=== PATIENT | male | born 1980 | race African-American/Black ===

== ENCOUNTER 2024-03-03 10:51 | Outpatient (CLI) | payer BC, SELFPAY ==
--- NOTE | ~2024-03-03 | US_ITS ---
Renal-Bladder ultrasound Clinical History: Abnormal kidney function studies Technique: Real-time sonographic imaging of the kidneys and urinary bladder was performed. Findings: The right kidney measures 10.8 cm in length and the left kidney measures 10.9 cm. There is no hydronephrosis or renal calculus identified. Renal cortical echogenicity is within normal limits. No renal mass lesion is identified. The urinary bladder is moderately distended at the time of this exam. No intraluminal echoes are iden tified. No abnormal wall thickening is seen. Impression: Unremarkable ultrasound of the kidneys and urinary bladder. Reviewed, dictated and finalized at location M. Impression: Unremarkable ultrasound of the kidneys and urinary bladder.
== END 2024-03-03 10:52 | disposition home or self-care (01) ==
LOC: MICIMG 10:52
PROVIDERS: PCP Student in an Organized Health Care Education/Training Program; Visit Provider Internal Medicine Nephrology
DX: R94.4 Abnormal results of kidney function studies (principal)
CPT/HCPCS: 76775

== ENCOUNTER 2024-09-01 13:52 | Outpatient (CLI) | payer BC, SELFPAY ==
[2024-09-01 14:23] LABS: Hematocrit 40.7 % (42.0-52.0); Hemoglobin 13.4 g/dL (14.0-18.0); Mean Corpuscular HGB Conc 32.9 g/dl (32-36); Mean Corpuscular Hemoglobin 29.8 pg (26-34); Mean Corpuscular Volume 90.4 fl (80-100); Mean Platelet Volume 9.7 fl (7.4-10.4); Platelet Count Result 337 k/mm3 (150-375); Red Cell Distribution Width 15.4 % (11.5-14.5); White Blood Count 7.5 K/mm3 (4.5-10.0)
[2024-09-01 14:40] LABS: Albumin Level 4.5 g/dL (3.5-5.1); Anion Gap 10 mmol/L (4-12); Blood Urea Nitrogen 18 mg/dL (9-20); Calcium 9.1 mg/dL (8.4-10.2); Carbon Dioxide 28 mmol/L (22-30); Chloride 103 mmol/L (98-107); Estimated Glomerular Filt Rate > 60; Glucose 96 mg/dL (65-110); Phosphorus 3.7 mg/dL (2.5-4.5); Potassium 3.9 mmol/L (3.4-5.0); Sodium 141 mmol/L (137-145)
[2024-09-01 15:15] LABS: Creatinine Urine 153.4 mg/dL
[2024-09-01 15:19] LABS: Total Protein Urine Random < 5 mg/dL; Ur Ttl Prot Creatinine Ratio < 0.03 mg/mg (0-0.20)
--- OUTSIDE RECORDS SUMMARY | 2024-09-01 15:29 | XMS_ITS | Referral Summary ---
Author Organization [facility] Address [address] [place] [address] Care Team Providers Care Terrazzo Installer Name Role Phone No, Physician Primary Care Provider [phone] Allergies No known active allergies Medications acetaminophen (TYLENOL) 500 mg tablet Take 1-2 tablets (500-1,000 mg total) by mouth every 6 (six) hours as needed for pain (1 tablet for mild to moderate pain. 2 tablets for severe pain) 30 tablet 02/23/2024 Active oxyCODONE (ROXICODONE) 5 mg immediate release tabletIndicatio ns:Pain Take 1 tablet (5 mg total) by mouth every 6 (six) hours as needed for pain 5 tablet 02/23/2024 Active ibuprofen (ADVIL,MOTRIN) 600 mg tablet Take 1 tablet (600 mg total) by mouth every 6 (six) hours as needed for pain 30 tablet 02/23/2024 Active Active Problems Problem Noted Date Diagnosed Date ABDIEL (obstructive sleep apnea) 03/26/2023 Pure hypercholesterolemia 03/26/2023 Essential hypertension 03/25/2019 Immunizations Immunization Administration Dates Next Due Tdap 02/22/2024 Social History Tobacco Use Types Packs/Day Years Used Date Smoking Tobacco: Never Assessed Alcohol Use Standard Drinks/Week Comments Yes 0 (1 standard drink = 0.6 oz pur e alcohol) Personal Safety Answer Date Recorded Have you ever been in or are you currently in a harmful physical or emotional relationship or is someone making you feel afraid or unsafe? 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 Gender Identity Not on file Sexual Orientation Not on file Last Filed Vital Signs Vital Sign Reading Time Taken Comments Blood Pressure 137/99 02/23/2024 2:05 AM CDT Pulse 75 02/23/2024 2:05 AM CDT Temperature 37.4 C (99.4 F) 02/23/2024 1:02 AM CDT Respiratory Rate 18 02/23/2024 2:05 AM CDT Oxygen Saturation 100% 02/23/2024 2:05 AM CDT Inhaled Oxygen Concentration - - Weight 106.6 kg (235 lb) 02/23/2024 1:25 AM CDT Height 189.2 cm (6' 2.5 ) 02/23/2024 1:25 AM CDT Body Mass Index 29.77 02/23/2024 1:25 AM CDT Plan of Treatment Not on file Insurance FED[employer]AL [address] [address] [employer] Care Teams Terrazzo Installer Relationship Specialty Start Date End Date No, Physician PCP - General 02/19/24
--- OUTSIDE RECORDS SUMMARY | 2024-09-01 15:29 | XMS_ITS | Clinical Summary ---
Author Organization 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 Gender Identity Not on file Sexual Orientation Not on file Obstetrics History Last Filed Vital Signs Vital Sign Reading [...] 02/23/2024 1:25 AM CDT Plan of Treatment Health Maintenance Due Date Last Done Comments Colon Cancer Screening-Colonoscopy 1978 Depression Screening 1978 Hepatitis C Screening 1978 Prostate Cancer Screening-PSA 1978 Hepatitis B Screening 1996 Regular Well Visit/Exam 18-64 1996 Covid-19 Vaccine ( season) 2024 11/01/2020, 09/20/2020 Influenza Vaccine (#1) 2024 DTaP/Tdap/Td Vaccine (8 - Td or Tdap) 02/21/2034 02/22/2024, 09/18/2022, 09/24/1992, Additional history exists HPV Vaccines Aged Out No longer eligi ble based on patient's age to complete this topic Pneumococcal vaccine <65 Aged Out No longer eligible based on patient's age to complete this topic Insurance [facility] [place] [address] [place] [address] [employer]AL Care Teams Quality Review Specialist Relationship Specialty Start Date End Date No, Physician PCP - General 02/19/24
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
== END 2024-09-01 13:53 | disposition home or self-care (01) ==
LOC: ANHLAB 13:55
PROVIDERS: PCP Student in an Organized Health Care Education/Training Program; Visit Provider Internal Medicine Nephrology
DX: R94.4 Abnormal results of kidney function studies (principal)
CPT/HCPCS: 36415; 80069; 82570; 84156; 85027